=== PATIENT | male | born 1995 | race African-American/Black ===

== ENCOUNTER 2019-12-14 15:00 | Emergency (ER) | payer SELFPAY ==
[~2019-12-14] VITALS: Ht 182.9 cm; Wt 87.0 kg
[2019-12-14 15:10] VITALS: BP 120/65
[2019-12-14] MEDS ORDERED: ALBU2.5V8 INH (15:24)
[2019-12-14] MEDS ORDERED: PRED20TA PO (15:24)
--- NOTE | 2019-12-14 15:24 | PHYS DOC ---
Past History Past Medical History: Asthma Smoking: Cigarettes Adult General Chief Complaint Chief Complaint: SHORTNESS OF BREATH HPI HPI Pt is a 19-year-old male with a past history of asthma who presents to the emergency department for evaluation. He states that for the past 2 days he has had a cough, nonproductive of sputum, along with some increasing shortness of breath. He states he has a history of asthma and his symptoms feel similar to prior asthma exacerbations, he has had a rescue inhaler in the past but has run out at this time. He denies any pain, fevers, nasal congestion, or any other complaints at this time. There are no alleviating or exacerbating factors to his symptoms. Review of Systems Review of Systems Constitutional: Denies fever or chills [] Eyes: Denies change in visual acuity, redness, or eye pain [] HENT: Denies nasal congestion or sore throat [] Respiratory: Reports cough and shortness of breath[] Cardiovascular: The patient denies any chest pain, palpitations, or orthopnea [] GI: Denies abdominal pain, nausea, vomiting, bloody stools or diarrhea [] : Denies dysuria or hematuria [] Musculoskeletal: Denies back pain or joint pain [] Integument: Denies rash or skin lesions [] Neurologic: Denies headache, focal weakness or sensory changes [] Endocrine: Denies polyuria or polydipsia [] All other systems were reviewed and found to be within normal limits, except as documented in this note. Allergies Allergies Allergies Coded Allergies Type Severity Reaction Last Updated Verified No Known Drug Allergies 12/14/19 No Physical Exam Physical Exam PHYSICAL EXAM: CONSTITUTIONAL: Well developed, well nourished HEAD: normocephalic, atraumatic EENT: PERRL, EOMI. Conjunctivae normal color, sclerae non-icteric; moist mucous membranes. NECK: Supple, non-tender; no meningismus. LUNGS: There are globally diminished breath sounds, without any rales, wheezes, or rhonchi. Breathing is mildly labored. HEART: Regular rate and rhythm, no murmur CHEST: No deformity; non-tender ABDOMEN: The abdomen is soft, and non-tender, no masses or bruits. EXTREM: Normal ROM; no deformity, no calf tenderness. Normal pulses palpable in all extremities. There is no pedal edema. SKIN: No rash; no diaphoresis NEURO: Alert; normal speech and cognition; CN's grossly intact; strength grossly intact without focal deficit. BACK: No CVA TTP. EKG EKG [] Radiology/Procedures Radiology/Procedures ER physician preliminary chest x-ray interpretation: No acute disease.[] Course & Med Decision Making Course & Med Decision Making Imaging studies reviewed. (See chart for details) [Patient remains stable and he is feeling better after nebulizer treatment. I discussed test results, the need for close follow-up, and return precautions. Discussed smoking cessation Dragon Disclaimer Dragon Disclaimer This electronic medical record was generated, in whole or in part, using a voice recognition dictation system. Departure Departure: Impression: Primary Impression: Asthma exacerbation Disposition: HOME, SELF-CARE Condition: STABLE Referrals: AVINASH CALDERON MD Patient Instructions: Asthma, Adult, Smoking Cessation Scripts Albuterol Sulfate (PROAIR HFA INHALER) 8.5 Gm Hfa.aer.ad 2 PUFF INH PRN Q6HRS PRN for SHORTNESS OF BREATH, #1 INHALER 0 Refills Prov: SUSAN MCDERMOTT MD 12/14/19 Prednisone (PREDNISONE) 20 Mg Tablet 40 MG PO DAILY for - for 5 Days, #10 TAB Prov: SUSAN MCDERMOTT MD 12/14/19 SUSAN MCDERMOTT MD Dec 14, 2019 15:24
[2019-12-14] MEDS ORDERED: IPRATRPIUM/ALBUTEROL 0.5/2.5MG 3 ML NEBU. NEB ONE (15:30)
[2019-12-14] MEDS ORDERED: predniSONE 20 MG TABLET PO ONE (15:30)
--- NOTE | 2019-12-14 15:52 | RAD ---
CHEST PA LATERAL INDICATION: Cough. COMPARISON STUDY: None. FINDINGS: Lungs: Normal lung volume. No pulmonary mass or consolidation. The tracheobronchial tree and hilar structures are normal. Pleura: No pleural effusion or pneumothorax. Heart and Mediastinum: The cardiomediastinal silhouette is normal. The great vessels of the thorax are normal. Bones and Soft Tissues: The bones and soft tissues are within normal limits. IMPRESSION: No acute cardiopulmonary process. Electronically signed by: Ramy Cerna MD (12/14/2019 3:49 PM) [id number]
== END 2019-12-14 15:58 | disposition home or self-care (01) ==
LOC: ER 15:00
DX: J45.901 Unspecified asthma with (acute) exacerbation (principal); F17.210 Nicotine dependence, cigarettes, uncomplicated
CPT/HCPCS: 71046; 94640; 99283; J7512

== ENCOUNTER 2020-04-24 01:11 | Emergency (ER) | payer SELFPAY ==
[~2020-04-24] VITALS: Ht 185.4 cm; Wt 74.0 kg
[~2020-04-24 01:11] MED LIST: ALBU2.5V8 INH; PRED20TA PO
--- NOTE | 2020-04-24 01:28 | PHYS DOC ---
Past History Past Medical History: Asthma Past Surgical History: No Surgical History Smoking: Cigarettes Alcohol Use: None General Adult EDM: Chief Complaint: DYSPNEA/RESPIRATOY DISTRESS HPI: HPI: "..I ve been out of my inhaler.. I have asthma... and I ve gotten really tight tonight..." Patient is a 24 year old male who presents with above hx and complaints of Asthma exacerbation. Patient does not know his best peak flow. No recent travel. Notes severe ill contacts. Patient has asthma exacerbations that require hospitalizations every 2 to 3 years. Patient has monthly episodes of exacerbation. Patient does smoke tobacco, marijuana and also vapes. Patient denies any history immunosuppression. No recent travel. No specific ill contacts. Has not required steroids recently for his asthma exacerbations. Patient was seen here on December 13 for similar type exacerbation. Patient has multiple triggers for his asthma seasonal, dust, sprain and fall allergies Review of Systems: Review of Systems: Constitutional: Denies fever or chills Eyes: Denies change in visual acuity HENT: Denies nasal congestion or sore throat Respiratory: Complaints of a nonproductive cough and wheezing Cardiovascular: Denies chest pain or edema GI: Denies abdominal pain, nausea, vomiting, bloody stools or diarrhea : Denies dysuria Musculoskeletal: Denies back pain or joint pain Integument: Denies rash Neurologic: Denies headache, focal weakness or sensory changes Endocrine: Denies polyuria or polydipsia Lymphatic: Denies swollen glands Psychiatric: Denies depression or anxiety Heart Score: Risk Factors: Risk Factors: DM, Current or recent (<one month) smoker, HTN, HLP, family history of CAD, obesity. Risk Scores: Score 0 - 3: 2.5% MACE over next 6 weeks - Discharge Home Score 4 - 6: 20.3% MACE over next 6 weeks - Admit for Clinical Observation Score 7 - 10: 72.7% MACE over next 6 weeks - Early Invasive Strategies Family History: Family History: Asthma Current Medications: Current Meds: See nursing for home meds Allergies: Allergies: Allergies Coded Allergies Type Severity Reaction Last Updated Verified No Known Drug Allergies 12/14/19 No Physical Exam: PE: Constitutional: , moderate acute distress, non-toxic appearance. [] HENT: Normocephalic, atraumatic, bilateral external ears normal, oropharynx moist, postnasal drainage no oral exudates, nose swollen turbinates and clear rhinorrhea Eyes: PERRLA, EOMI, conjunctiva normal, no discharge. [] Neck: Normal range of motion, no tenderness, supple, no stridor. [] Cardiovascular: Tachycardia heart rate regular rhythm, no murmur [] Lungs & Thorax: Bilateral breath sounds equal apex with scattered wheezes throughout auscultation [] Abdomen: Bowel sounds normal, soft, no tenderness, no masses, no pulsatile masses. [] Skin: Warm, dry, no erythema, no rash. Multiple tattoos Back: No tenderness, no CVA tenderness. [] Extremities: No tenderness, no cyanosis, no clubbing, ROM intact, no edema. [] No cording appreciated Neurologic: Alert and oriented X 3, normal motor function, normal sensory function, no focal deficits noted. [] Psychologic: Affect anxious, judgement normal, mood normal. [] EKG: EKG: [] Radiology/Procedures: Radiology/Procedures: [][place] [address] IMAGING REPORT Signed PATIENT: TITA COLORADO ACCOUNT: [id number] : 1995 LOCATION: ER AGE: 24 SEX: M EXAM STATUS: REG ER ORD. PHYSICIAN: TYREE MOORE MD REASON: Respiratory distress, trouble breathing PROCEDURE: CHEST PA & LATERAL CHEST PA LATERAL INDICATION: Reason: Respiratory distress, trouble breathing / Spl. Instructions: / History: . COMPARISON STUDY: 12/14/2019. FINDINGS: Lungs: Normal lung volume. No pulmonary mass or consolidation. The tracheobronchial tree and hilar structures are normal. Pleura: No pleural effusion or pneumothorax. Heart and Mediastinum: The cardiomediastinal silhouette is normal. The great vessels of the thorax are normal. Bones and Soft Tissues: The bones and soft tissues are within normal limits. IMPRESSION: No acute cardiopulmonary process. Electronically signed by: Glory Wakefield MD (04/24/2020 2:41 AM) [facility] DICTATED AND SIGNED BY: GLORY WAKEFIELD MD DATE: 04/24/20 0241 CC: TYREE MOORE MD; PCP,NO ~ Course & Med Decision Making: Course & Med Decision Making Pertinent Labs and Imaging studies reviewed. (See chart for details) Pt. demanding discharge. Encourage patient stop smoking tobacco marijuana. Encourage patient stop vaping. Patient to document peak flows 4 times a day and show this to his doctor. Patient use MDI 2 puffs 4 times a day. Patient may use [id number] Benadryl 25-50 mg 4 times a day for drainage and congestion. Must follow-up. Return if any concerns. Impression: 1. Asthma Exacerbation 2. Tobacco and Marijuana Use [] Dragon Disclaimer: Sarah Disclaimer: This electronic medical record was generated, in whole or in part, using a voice recognition dictation system. Departure Departure: Disposition: 01 HOME/RESIDENCE PRIOR TO ADM Condition: STABLE Referrals: PCP,NO (PCP) Justification of Admission: Justification of Admission: Justification of Admission Dx: N/A Dragon Disclaimer This chart was dictated in whole or in part using Voice Recognition software in a busy, high-work load, and often noisy Emergency Department environment. It may contain unintended and wholly unrecognized errors or omissions. TYREE MOORE MD Apr 24, 2020 01:28
[2020-04-24] MEDS ORDERED: methylPREDNISolone ACETATE 40 MG/ML VIAL. IM ONE (01:30)
[2020-04-24] MEDS ORDERED: ALBUTEROL SULFATE 8GM INHALER. INH ONE (01:30)
[2020-04-24] MEDS ORDERED: IV RINGERS SOLUTION,LACTATED 1,000 ML IV SCH (01:30)
[2020-04-24 02:44] LABS: BASO # 0.1 x10^3/uL (0.0-0.2); BASO % 2 % (0-3); EOS # 0.7 x10^3/uL (0.0-0.7); EOS % 15 % (0-3); HEMATOCRIT 49.9 % (39.0-53.0); HEMOGLOBIN 16.8 g/dL (13.0-17.5); LYMPH # 2.3 x10^3/uL (1.0-4.8); LYMPH % 50 % (24-48); MEAN CORPUSCULAR HEMOGLOBIN 29 pg (25-35); MEAN CORPUSCULAR HGB CONC 34 g/dL (31-37); MEAN CORPUSCULAR VOLUME 87 fL (79-100); MONO # 0.5 x10^3/uL (0.0-1.1); MONO % 12 % (0-9); NEUT % 22 % (31-73); PLATELET COUNT 263 x10^3/uL (140-400); RED BLOOD COUNT 5.77 x10^6/uL (4.30-5.70); RED CELL DISTRIBUTION WIDTH 12.6 % (11.5-14.5); WHITE BLOOD COUNT 4.6 x10^3/uL (4.0-11.0)
--- NOTE | 2020-04-24 02:44 | RAD ---
CHEST PA LATERAL INDICATION: Reason: Respiratory distress, trouble breathing / Spl. Instructions: / History: . COMPARISON STUDY: 12/14/2019. FINDINGS: Lungs: Normal lung volume. No pulmonary mass or consolidation. The tracheobronchial tree and hilar structures are normal. Pleura: No pleural effusion or pneumothorax. Heart and Mediastinum: The cardiomediastinal silhouette is normal. The great vessels of the thorax are normal. Bones and Soft Tissues: The bones and soft tissues are within normal limits. IMPRESSION: No acute cardiopulmonary process. Electronically signed by: Ramy Cerna MD (04/24/2020 2:41 AM) [facility]
[2020-04-24 02:46] LABS: CALCIUM 9.9 mg/dL (8.5-10.1); CREATININE 1.4 mg/dL (0.7-1.3); GFR 74.1; POTASSIUM 3.4 mmol/L (3.5-5.1)
[2020-04-24 03:00] LABS: ALBUMIN 4.4 g/dL (3.4-5.0); DIRECT BILIRUBIN 0.2 mg/dL (0.0-0.2); MAGNESIUM 1.8 mg/dL (1.8-2.4); TOTAL PROTEIN 8.4 g/dL (6.4-8.2)
[2020-04-24 03:20] VITALS: BP 104/71
[2020-04-24 03:41] LABS: BACTERIA,URINE FEW /HPF (0-FEW); BILIRUBIN,URINE NEG (NEG); CLARITY,URINE HAZY; COLOR,URINE AMBER; GLUCOSE,URINE NEG (NEG); NITRITE,URINE NEG (NEG); RBC,URINE 0 /HPF (0-2); WBC,URINE 0 /HPF (0-4)
[2020-04-24 03:42] LABS: SQUAMOUS EPITHELIAL CELL,UR OCC /LPF
[2020-04-24 03:44] LABS: BARBITURATES NEG (NEG); BENZODIAZEPINES NEG (NEG); CANNABINOIDS POS (NEG); COCAINE POS (NEG); METHADONE NEG (NEG); OPIATES NEG (NEG); PHENCYCLIDINE NEG (NEG)
[2020-04-24 03:57] LABS: AMPHETAMINE/METHAMPHETAMINE NEG (NEG)
[2020-04-24] MEDS ORDERED: PRED20TA PO (13:44)
== END 2020-04-24 03:26 | disposition home or self-care (01) ==
LOC: ER 01:11
DX: J45.901 Unspecified asthma with (acute) exacerbation (principal); F17.210 Nicotine dependence, cigarettes, uncomplicated; F12.90 Cannabis use, unspecified, uncomplicated
CPT/HCPCS: 36415; 71046; 80048; 80076; 80307; 81001; 82550; 83735; 83880; 84484; 85025; 94640; 96372; 99284; J1030; J7120; J7613; 96360; 94664

== ENCOUNTER 2020-04-24 09:30 | Emergency (ER) | payer SELFPAY ==
[~2020-04-24] VITALS: Ht 185.4 cm; Wt 74.0 kg
[2020-04-24 09:39] VITALS: BP 169/88
[2020-04-24] MEDS ORDERED: IPRATRPIUM/ALBUTEROL 0.5/2.5MG 3 ML NEBU. NEB ONE (10:00)
[2020-04-24] MEDS ORDERED: methylPREDNISolone SOD SUCC PF 125 MG/2 ML VIAL. IM ONE (10:00)
[2020-04-24] MEDS ORDERED: MAGNESIUM SULFATE 2GM 50 ML IV ONE (11:15)
[2020-04-24 11:48] LABS: BASO % 1 % (0-3); EOS # 0.3 x10^3/uL (0.0-0.7); EOS % 6 % (0-3); HEMOGLOBIN 16.5 g/dL (13.0-17.5); LYMPH % 24 % (24-48); MEAN CORPUSCULAR HEMOGLOBIN 29 pg (25-35); MEAN CORPUSCULAR HGB CONC 33 g/dL (31-37); MEAN CORPUSCULAR VOLUME 88 fL (79-100); MONO # 0.2 x10^3/uL (0.0-1.1); MONO % 6 % (0-9); NEUT # 2.7 x10^3uL (1.8-7.7); NEUT % 63 % (31-73); PLATELET COUNT 231 x10^3/uL (140-400); RED BLOOD COUNT 5.67 x10^6/uL (4.30-5.70); RED CELL DISTRIBUTION WIDTH 13.1 % (11.5-14.5); WHITE BLOOD COUNT 4.3 x10^3/uL (4.0-11.0)
[2020-04-24 11:56] LABS: CALCIUM 9.6 mg/dL (8.5-10.1); CREATININE 1.5 mg/dL (0.7-1.3); GFR 68.4; POTASSIUM 3.6 mmol/L (3.5-5.1)
[2020-04-24 12:15] LABS: ALBUMIN 4.2 g/dL (3.4-5.0); ALBUMIN/GLOBULIN RATIO 1.1 (1.0-1.7); TOTAL BILIRUBIN 0.6 mg/dL (0.2-1.0)
[2020-04-24] MEDS ORDERED: PRED20TA PO (13:44)
--- NOTE | 2020-04-24 13:44 | PHYS DOC ---
Past History Past Medical History: Asthma Past Surgical History: No Surgical History Smoking: Cigarettes Alcohol Use: None General Adult EDM: Chief Complaint: SHORTNESS OF BREATH HPI: HPI: Patient is a 24-year-old male who presented to ER today for evaluation of trouble breathing started several hours ago. Patient has history of asthma, he was seen here earlier this morning for the same symptom, chest x-ray was normal, patient was given albuterol MDI. Patient said he went home still having trouble breathing again, he used his inhaler but did not improve so he came back here for evaluation. Patient denies any chest pain, no cough, no fever. Review of Systems: Review of Systems: Constitutional: Denies fever or chills Eyes: Denies change in visual acuity HENT: Denies nasal congestion or sore throat Respiratory: Denies cough , positive for shortness of breath Cardiovascular: Denies chest pain or edema GI: Denies abdominal pain, nausea, vomiting, bloody stools or diarrhea : Denies dysuria Musculoskeletal: Denies back pain or joint pain Integument: Denies rash Neurologic: Denies headache, focal weakness or sensory changes Endocrine: Denies polyuria or polydipsia Lymphatic: Denies swollen glands Psychiatric: Denies depression or anxiety Heart Score: Risk Factors: Risk Factors: DM, Current or recent (<one month) smoker, HTN, HLP, family hist ory of CAD, obesity. Risk Scores: Score 0 - 3: 2.5% MACE over next 6 weeks - Discharge Home Score 4 - 6: 20.3% MACE over next 6 weeks - Admit for Clinical Observation Score 7 - 10: 72.7% MACE over next 6 weeks - Early Invasive Strategies Current Medications: Current Meds: Current Medications Medications (Trade) Dose Ordered Sig/Charanjit Start Time Stop Time Status Last Admin Dose Admin Albuterol/ Ipratropium (Duoneb) 3 ml 1X ONCE 04/24/20 10:00 04/24/20 10:01 DC 04/24/20 10:00 3 ML Magnesium Sulfate 50 ml @ 25 mls/hr 1X ONCE 04/24/20 11:15 04/24/20 13:14 DC 04/24/20 11:15 25 MLS/HR Methylprednisolone Sodium Succinate (SOLU-Medrol 125MG VIAL) 125 mg 1X ONCE 04/24/20 10:00 04/24/20 10:01 DC 04/24/20 10:00 125 MG Allergies: Allergies: Allergies Coded Allergies Type Severity Reaction Last Updated Verified No Known Drug Allergies 04/24/20 No Physical Exam: PE: Constitutional: Well developed, well nourished, no acute distress, non-toxic appearance. [] HENT: Normocephalic, atraumatic, bilateral external ears normal, oropharynx moist, no oral exudates, nose normal. [] Eyes: PERRLA, EOMI, conjunctiva normal, no discharge. [] Neck: Normal range of motion, no tenderness, supple, no stridor. [] Cardiovascular:Heart rate regular rhythm, no murmur [] Lungs & Thorax: Bilateral breath sounds with wheezing inspiratory and expiratory to auscultation [] Abdomen: Bowel sounds normal, soft, no tenderness, no masses, no pulsatile masses. [] Skin: Warm, dry, no erythema, no rash. [] Back: No tenderness, no CVA tenderness. [] Extremities: No tenderness, no cyanosis, no clubbing, ROM intact, no edema. [] Neurologic: Alert and oriented X 3, normal motor function, normal sensory function, no focal deficits noted. [] Psychologic: Affect normal, judgement normal, mood normal. [] Current Patient Data: Labs: Laboratory Tests Test 04/24/20 11:17 White Blood Count 4.3 x10^3/uL (4.0-11.0) Red Blood Count 5.67 x10^6/uL (4.30-5.70) Hemoglobin 16.5 g/dL (13.0-17.5) Hematocrit 50.0 % (39.0-53.0) Mean Corpuscular Volume 88 fL (79-100) Mean Corpuscular Hemoglobin 29 pg (25-35) Mean Corpuscular Hemoglobin Concent 33 g/dL (31-37) Red Cell Distribution Width 13.1 % (11.5-14.5) Platelet Count 231 x10^3/uL (140-400) Neutrophils (%) (Auto) 63 % (31-73) Lymphocytes (%) (Auto) 24 % (24-48) Monocytes (%) (Auto) 6 % (0-9) Eosinophils (%) (Auto) 6 % (0-3) H Basophils (%) (Auto) 1 % (0-3) Neutrophils # (Auto) 2.7 x10^3uL (1.8-7.7) Lymphocytes # (Auto) 1.0 x10^3/uL (1.0-4.8) Monocytes # (Auto) 0.2 x10^3/uL (0.0-1.1) Eosinophils # (Auto) 0.3 x10^3/uL (0.0-0.7) Basophils # (Auto) 0.0 x10^3/uL (0.0-0.2) Sodium Level 141 mmol/L (136-145) Potassium Level 3.6 mmol/L (3.5-5.1) Chloride Level 101 mmol/L (98-107) Carbon Dioxide Level 31 mmol/L (21-32) Anion Gap 9 (6-14) Blood Urea Nitrogen 16 mg/dL (8-26) Creatinine 1.5 mg/dL (0.7-1.3) H Estimated GFR (Cockcroft-Gault) 68.4 BUN/Creatinine Ratio 11 (6-20) Glucose Level 117 mg/dL (70-99) H Calcium Level 9.6 mg/dL (8.5-10.1) Magnesium Level 2.0 mg/dL (1.8-2.4) Total Bilirubin 0.6 mg/dL (0.2-1.0) Aspartate Amino Transferase (AST) 27 U/L (15-37) Alanine Aminotransferase (ALT) 19 U/L (16-63) Alkaline Phosphatase 56 U/L (46-116) Total Protein 8.0 g/dL (6.4-8.2) Albumin 4.2 g/dL (3.4-5.0) Albumin/Globulin Ratio 1.1 (1.0-1.7) Vital Signs: Vital Signs Date Time Temp Pulse Resp B/P (MAP) Pulse Ox O2 Delivery O2 Flow Rate FiO2 04/24/20 10:58 95 Nasal Cannula 2.0 04/24/20 09:39 98.0 125 26 169/88 (115) EKG: EKG: [] Radiology/Procedures: Radiology/Procedures: [] Course & Med Decision Making: Course & Med Decision Making Pertinent Labs and Imaging studies reviewed. (See chart for details) Patient is a 24-year-old male who was evaluated in the ER due to asthmatic exacerbation. Patient was given DuoNeb treatment in the ER, Solu-Medrol and magnesium. Patient feelS much better. His lung sounds on reexamination improved significantly with mild expiratory wheezing . we will discharge him home with a prescription for prednisone. Sarah Disclaimer: Sarah Disclaimer: This electronic medical record was generated, in whole or in part, using a voice recognition dictation system. Departure Departure: Impression: Primary Impression: Asthma attack Disposition: HOME/RESIDENCE PRIOR TO ADM Condition: IMPROVED Referrals: PCPJOZEF (PCP) PLEASE FOLLOW UP WITH YOUR FAMILY DOCTOR ON SUNDAY FOR REEVALUATION. Patient Instructions: Asthma Attacks, Prevention, Asthma, Acute Bronchospasm Scripts Prednisone (PREDNISONE) 20 Mg Tablet 1 TAB PO DAILY for ASTHMA for 10 Days, #10 TAB Prov: LUPE SAWYER DO 04/24/20 Justification of Admission: Justification of Admission: Justification of Admission Dx: N/A LUPE SAWYER DO Apr 24, 2020 13:44
== END 2020-04-24 13:48 | disposition home or self-care (01) ==
LOC: ER 09:30
DX: J45.901 Unspecified asthma with (acute) exacerbation (principal); F17.210 Nicotine dependence, cigarettes, uncomplicated
CPT/HCPCS: 36415; 80053; 83735; 85025; 94640; 96365; 96366; 96372; 99284; J2930; J3475

== ENCOUNTER 2020-05-01 09:18 | Emergency (ER) | payer SELFPAY ==
[~2020-05-01] VITALS: Ht 188 cm; Wt 73.6 kg
[2020-05-01] MEDS ORDERED: IPRATRPIUM/ALBUTEROL 0.5/2.5MG 3 ML NEBU. ONE (09:25)
[2020-05-01] MEDS ORDERED: DEXAMETHASONE 4 MG TABLET PO ONE (09:30)
[2020-05-01] MEDS ORDERED: IPRATRPIUM/ALBUTEROL 0.5/2.5MG 3 ML NEBU. NEB ONE (09:30)
[2020-05-01 09:35] VITALS: BP 150/107
[2020-05-01] MEDS ORDERED: ALBUTEROL SULFATE 2.5 MG/3 ML NEBU. ONE (09:36)
[2020-05-01] MEDS ORDERED: ALBUTEROL SULFATE 2.5 MG/3 ML NEBU. CONT NEB ONE ×2 (09:45)
--- NOTE | 2020-05-01 11:03 | RAD ---
CHEST AP ONLY 05/01/2020 9:24 AM INDICATION: Wheezing COMPARISON: 04/24/2020 TECHNIQUE: Portable frontal view of the chest is provided. FINDINGS: The cardiomediastinal silhouette is within normal limits. Lungs are clear. There are no significant pleural effusions. There is no pulmonary vascular congestion. No pneumothorax. No suspicious osseous abnormality. IMPRESSION: There is no acute cardiopulmonary process. Electronically signed by: Noemy Thorne MD (05/01/2020 10:59 AM) TE
--- NOTE | 2020-05-01 11:17 | PHYS DOC ---
Past History Past Medical History: Asthma Past Surgical History: No Surgical History Smoking: Cigarettes Alcohol Use: Occasionally General Adult EDM: Chief Complaint: SHORTNESS OF BREATH HPI: HPI: Patient is a [age] year old [sex] who presents with [] Review of Systems: Review of Systems: Constitutional: Denies fever or chills Eyes: Denies change in visual acuity HENT: Denies nasal congestion or sore throat Respiratory: Denies cough or shortness of breath Cardiovascular: Denies chest pain or edema GI: Denies abdominal pain, nausea, vomiting, bloody stools or diarrhea : Denies dysuria Musculoskeletal: Denies back pain or joint pain Integument: Denies rash Neurologic: Denies headache, focal weakness or sensory changes Endocrine: Denies polyuria or polydipsia Lymphatic: Denies swollen glands Psychiatric: Denies depression or anxiety Heart Score: Risk Factors: Risk Factors: DM, Current or recent (<one month) smoker, HTN, HLP, family history of CAD, obesity. Risk Scores: Score 0 - 3: 2.5% MACE over next 6 weeks - Discharge Home Score 4 - 6: 20.3% MACE over next 6 weeks - Admit for Clinical Observation Score 7 - 10: 72.7% MACE over next 6 weeks - Early Invasive Strategies Current Medications: Current Meds: Current Medications Medications (Trade) Dose Ordered Sig/Charanjit Start Time Stop Time Status Last Admin Dose Admin Albuterol Sulfate (Ventolin) 2.5 mg 1X ONCE 05/01/20 09:45 05/01/20 09:50 DC 05/01/20 09:45 2.5 MG Albuterol/ Ipratropium (Duoneb) 3 ml STK-MED ONCE 05/01/20 09:25 05/01/20 09:25 DC Dexamethasone (Decadron) 10 mg 1X ONCE 05/01/20 09:30 05/01/20 09:31 DC 05/01/20 09:30 10 MG Allergies: Allergies: Allergies Coded Allergies Type Severity Reaction Last Updated Verified No Known Drug Allergies 04/24/20 No Physical Exam: PE: Constitutional: Well developed, well nourished, no acute distress, non-toxic appearance. [] HENT: Normocephalic, atraumatic, bilateral external ears normal, oropharynx moist, no oral exudates, nose normal. [] Eyes: PERRLA, EOMI, conjunctiva normal, no discharge. [] Neck: Normal range of motion, no tenderness, supple, no stridor. [] Cardiovascular:Heart rate regular rhythm, no murmur [] Lungs & Thorax: Bilateral breath sounds clear to auscultation [] Abdomen: Bowel sounds normal, soft, no tenderness, no masses, no pulsatile masses. [] Skin: Warm, dry, no erythema, no rash. [] Back: No tenderness, no CVA tenderness. [] Extremities: No tenderness, no cyanosis, no clubbing, ROM intact, no edema. [] Neurologic: Alert and oriented X 3, normal motor function, normal sensory function, no focal deficits noted. [] Psychologic: Affect normal, judgement normal, mood normal. [] Current Patient Data: Vital Signs: Vital Signs Date Time Temp Pulse Resp B/P (MAP) Pulse Ox O2 Delivery O2 Flow Rate FiO2 05/01/20 10:43 94 Room Air 05/01/20 09:35 98.1 108 20 150/107 (121) EKG: EKG: [] Radiology/Procedures: Radiology/Procedures: PROCEDURE: CHEST AP ONLY CHEST AP ONLY 05/01/2020 9:24 AM INDICATION: Wheezing COMPARISON: 04/24/2020 TECHNIQUE: Portable frontal view of the chest is provided. FINDINGS: The cardiomediastinal silhouette is within normal limits. Lungs are clear. There are no significant pleural effusions. There is no pulmonary vascular congestion. No pneumothorax. No suspicious osseous abnormality. IMPRESSION: There is no acute cardiopulmonary process. Electronically signed by: Noemy Thorne MD (05/01/2020 10:59 AM) [facility] Course & Med Decision Making: Course & Med Decision Making Pertinent Labs and Imaging studies reviewed. (See chart for details) [] Dragon Disclaimer: Dragon Disclaimer: This electronic medical record was generated, in whole or in part, using a voice recognition dictation system. Departure Departure: Impression: Primary Impression: Asthma exacerbation Qualified Codes: J45.21 - Mild intermittent asthma with (acute) exacerbation Disposition: HOME/RESIDENCE PRIOR TO ADM Condition: STABLE Referrals: PCP,NO (PCP) RUBI HINSON MD Patient Instructions: Asthma, Adult, [id number] Scripts Albuterol Sulfate (PROAIR HFA INHALER) 8.5 Gm Hfa.aer.ad 2 PUFF IH PRN Q4-6HRS PRN for wheezing for 21 Days, #1 INHALER 0 Refills Prov: CHRISTO ABRAMS DO 05/01/20 Albuterol Sulfate (ALBUTEROL SULFATE CONC NEB SOLN) 2.5 Mg/0.5 Ml Vial.neb 1 VIAL NEB Q6HRS PRN for WHEEZING, #60 VIAL Prov: CHRISTO ABRAMS DO 05/01/20 Prednisone (PREDNISONE) 20 Mg Tablet 2 TAB PO DAILY for Asthma, #8 TAB Start this medication tomorrow, Sunday05/02/20 Prov: CHRISTO ABRAMS DO 05/01/20 Justification of Admission: Justification of Admission: Justification of Admission Dx: N/A CHRISTO ABRAMS DO May 01, 2020 11:16
[2020-05-01] MEDS ORDERED: ALBUTEROL SULFATE 8GM INHALER. ONE (11:28)
[2020-05-01] MEDS ORDERED: PRED20TA PO (11:30)
[2020-05-01] MEDS ORDERED: ALBU2.5V14 NEB (11:30)
[2020-05-01] MEDS ORDERED: ALBUTEROL SULFATE 8GM INHALER. INH ONE (11:30)
[2020-05-01] MEDS ORDERED: ALBU2.5V8 IH (11:30)
== END 2020-05-01 11:35 | disposition home or self-care (01) ==
LOC: ER 09:18
DX: J45.21 Mild intermittent asthma with (acute) exacerbation (principal); F17.210 Nicotine dependence, cigarettes, uncomplicated
CPT/HCPCS: 71045; 94640; 94644; 99285; J7613; J8540

== ENCOUNTER 2020-06-17 09:53 | Emergency (ER) | payer SELFPAY ==
[~2020-06-17] VITALS: Ht 188 cm; Wt 68.6 kg
[~2020-06-17 09:53] MED LIST changes: +ALBU2.5V14 NEB; +ALBU2.5V8 IH
[2020-06-17] MEDS ORDERED: IPRATRPIUM/ALBUTEROL 0.5/2.5MG 3 ML NEBU. NEB ONE (10:00)
[2020-06-17] MEDS ORDERED: methylPREDNISolone SOD SUCC PF 125 MG/2 ML VIAL. IV ONE (10:00)
--- NOTE | 2020-06-17 10:08 | PHYS DOC ---
Past History Past Medical History: Asthma Past Surgical History: No Surgical History Smoking: Cigarettes Alcohol Use: Occasionally Drug Use: Marijuana Adult General Chief Complaint Chief Complaint: ASTHMA HPI HPI Patient is a 24-year-old male presenting for shortness of breath. Patient has a long history of asthma with recent ER visit in April for similar symptoms. Reports worsening shortness of breath and wheezing past 2 days. Reports being out in yard playing with younger nephew when he could not catch his breath anymore. He was given an inhaler on discharge from ER visit in April but reports using it to completion, has not established with PCP, has not received any more refills of home inhalers. Continued shortness of breath worried him for asthma exacerbation causing him to present for evaluation today. He denies any fevers, no constitutional symptoms, no sick contacts or COVID-19 contact, no hemoptysis, no leg swelling or long distance travel. Patient admits continued cigarette and THC abuse with last use this morning prior to asthma exacerbation Review of Systems Review of Systems Fourteen body systems of review of systems have been reviewed. See HPI for pertinent positives and negative responses, other villagomez all other systems are negative, non-pertinent or non-contributory Current Medications Current Medications Current Medications Medications (Trade) Dose Ordered Sig/Charanjit Start Time Stop Time Status Last Admin Dose Admin Albuterol/ Ipratropium (Duoneb) 3 ml 1X ONCE 06/17/20 10:00 06/17/20 10:01 DC Methylprednisolone Sodium Succinate (SOLU-Medrol 125MG VIAL) 125 mg 1X ONCE 06/17/20 10:00 06/17/20 10:01 DC Allergies Allergies Allergies Coded Allergies Type Severity Reaction Last Updated Verified No Known Drug Allergies 04/24/20 No Physical Exam Physical Exam Constitutional: Well developed, well nourished, moderate distress, non-toxic appearance. HENT: Normocephalic, atraumatic, bilateral external ears normal, oropharynx moist, no oral exudates, nose normal. Eyes: PERRLA, EOMI, conjunctiva normal, no discharge. Neck: Normal range of motion, no tenderness, supple, no stridor. Cardiovascular: Heart rate tachycardic, sinus rhythm, no murmurs rubs or gallops Lungs & Thorax: Bilateral breath sounds diminished bilaterally, audible wheezes, extensive wheezes diffusely on auscultation, moderate respiratory distress Abdomen: Bowel sounds normal, soft, no tenderness, no masses, no pulsatile masses. Nonsurgical abdomen, no peritoneal signs Skin: Warm, dry, no erythema, no rash. Back: No tenderness, no CVA tenderness. Extremities: No tenderness, no cyanosis, no clubbing, ROM intact, no edema. Neurologic: Alert and oriented X 3, grossly normal motor & sensory function, no focal deficits noted. Psychologic: Affect normal, judgement normal, mood appropriate for situation Current Patient Data Vital Signs Vital Signs Date Time Temp Pulse Resp B/P (MAP) Pulse Ox O2 Delivery O2 Flow Rate FiO2 06/17/20 10:33 103 20 126/73 (90) 95 Room Air 06/17/20 10:00 97.6 EKG EKG [] Radiology/Procedures Radiology/Procedures PROCEDURE: CHEST AP ONLY EXAMINATION: CHEST AP ONLY CLINICAL HISTORY: Asthma, shortness of breath EXAM DATE/TIME: 06/17/2020 9:57 AM COMPARISON: 05/01/2020 FINDINGS: Lines, tubes, and devices: None. Cardiomediastinal silhouette: Within normal limits. Lungs and pleura: No evidence of focal airspace consolidation or pleural effusion. Pulmonary vasculature unremarkable. Bones and soft tissues: No acute osseous abnormality. IMPRESSION: No evidence of acute cardiopulmonary abnormality or significant interval change. Electronically signed by: nAanth Sue DO (06/17/2020 10:39 AM) [id number] Course & Med Decision Making Course & Med Decision Making Ambulatory patient seen on immediate ER arrival Airway patent, moderate respiratory distress with audible wheezes and bilateral chest rise, tachycardic otherwise remaining vitals unremarkable History and physical exam obtained, subsequent diagnostic studies ordered IV access obtained in 125 mg Solu-Medrol, x1 DuoNeb and x1 albuterol MDI treatments administered with great improvement in patient's respiratory symptoms Patient reassessed numerous times throughout ER visit by various medical staff with improvement in respiratory function I reviewed ER course with patient, I discussed my low risk for cardiac abnormalities or severe pulmonary abnormalities such as pulmonary embolism I discussed most likely diagnosis of asthma exacerbation, I feel patient's continued tobacco and marijuana use contributes to this Patient has no PCP, I educated him on importance of establishing care to ensure he has adequate inhaler supplies at home to prevent future exacerbations, he understood and was agreeable to establishing with someone locally Strict return precautions discussed at length with good understanding by patient, all questions and concerns addressed prior to ER departure Patient leaving with MDI inhaler albuterol, written scripts for albuterol and prednisone taper in addition to resources on local primary care physicians Sarah Disclaimer Sarah Disclaimer This electronic medical record was generated, in whole or in part, using a voice recognition dictation system. Departure Departure: Impression: Primary Impression: Asthma exacerbation Disposition: HOME/RESIDENCE PRIOR TO ADM Condition: STABLE Referrals: PCP,NO (PCP) Scripts Albuterol Sulfate (PROAIR HFA INHALER) 8.5 Gm Hfa.aer.ad 2 PUFF INH PRN Q6HRS PRN for SHORTNESS OF BREATH for 7 Days, #1 INHALER 0 Refills Prov: MARIELA FOOTE DO 06/17/20 Prednisone (PREDNISONE) 20 Mg Tablet 40 MG PO DAILY for Asthma for 4 Days, #8 TAB Prov: MARIELA FOOTE DO 06/17/20 Justification of Admission: Justification of Admission: Justification of Admission Dx: N/A MARIELA FOOTE DO Jun 17, 2020 10:08
[2020-06-17] MEDS ORDERED: ALBUTEROL SULFATE 8GM INHALER. INH ONE (10:15)
[2020-06-17 10:33] VITALS: BP 126/73
[2020-06-17] MEDS ORDERED: ALBU2.5V8 INH (10:58)
[2020-06-17] MEDS ORDERED: PRED20TA PO (10:58)
== END 2020-06-17 11:00 | disposition home or self-care (01) ==
LOC: ER 09:53
DX: J45.901 Unspecified asthma with (acute) exacerbation (principal); F17.210 Nicotine dependence, cigarettes, uncomplicated
CPT/HCPCS: 94640; 96374; 99284; J2930; J7613; 94664